=== PATIENT | male | born 1975 | race Asian ===

== ENCOUNTER 2017-07-26 08:22 | Emergency (ER) | payer OTHER ==
[2017-07-26 08:31] VITALS: RESP 16; TEMP 98.1; O2SAT 98
[2017-07-26] MEDS ORDERED: IBUPROFEN 600 MG TAB PO ONE (08:49)
--- NOTE | 2017-07-26 08:54 | EDPHY ---
H & P Time Seen by Provider: 07/26/17 08:32 HPI/ROS: This patient complains of left foot pain. The onset of the pain is over the past 48 hours but significantly worsened the day before arrival with peak intensity 8/10 sharp feeling pain to the lateral forefoot and dorsal lateral midfoot. The pain is worse with weight-bearing and in fact he cannot bear full weight on the lateral aspect of the affected foot. He reports minimal improvement from Aleve and no other exacerbating or alleviating factors. He thinks there is slight swelling associated with the symptoms. The symptoms are worse while wearing his boots. No other exacerbating factors are noted. He has never had pain in this location of his foot before. ROS: No fevers or chills. No other constitutional symptoms Musculoskeletal: No other musculoskeletal complaints at this time except for chronic discomfort from bunions bilaterally on his feet. No acute trauma. Neuro: No numbness or tingling the affected foot Cardiovascular: No significant discoloration to the affected foot Integumentary: No skin rash. 5 point ROS is otherwise negative. Social History: Occasional alcohol. No drug use. 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 While the patient typically runs for recreation he has not been running for the last 3 weeks due to foot pains. Smoking Status: Never smoked Physical Exam: Physical Exam Vital signs are normal. General: No acute distress HEENT: Atraumatic. Eyes: Pupils equal and react to light. Extraocular motions are intact. Lungs: No respiratory distress. Cardiac: Brisk capillary refill is intact throughout. Pulses are 2+ and symmetric in the affected extremity. Skin: No rash or pallor. Extremities: Atraumatic normal except for left foot Left foot: Patient has mild erythema and slight warmth to touch to the dorsal lateral midfoot. He has tenderness extends to the distal 5th metatarsal. There is moderate sized bunion with minimal tenderness but no erythema to the head of 1st metatarsal. This is symmetric with the right foot. No calcaneal tenderness, ankle swelling or tenderness or tenderness to the plantar aspect of the foot. Neuro: Alert and oriented with no sensorimotor deficits to the affected foot. Initial differential diagnosis: Stress fracture, foot sprain, gout her other mono articular arthritis Constitutional: Initial Vital Signs Temperature (C) 36.7 C 07/26/17 08:29 Heart Rate 84 07/26/17 08:29 Respiratory Rate 16 07/26/17 08:29 Blood Pressure 158/113 H 07/26/17 08:29 O2 Sat (%) 98 07/26/17 08:29 O2 Delivery Mode Room Air Allergies/Adverse Reactions: No Known Allergies Allergy (Unverified 07/26/17 08:32) Home Medications: Medication Instructions Recorded Indomethacin [Indocin 25 mg (RX)] 50 mg PO TID PRN #50 cap 07/26/17 traMADol [Ultram 50 mg (*)] 50 - 100 mg PO Q4 PRN #20 tab 07/26/17 MDM/Departure - MDM Imaging Results: Imaging Impressions Foot X-Ray 07/26/17 08:45 Impression: 1. No stress fracture. 2. 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 Medications Given: Discontinued Medications Ibuprofen (Motrin) 600 mg PO EDNOW ONE Stop: 07/26/17 08:50 Last Admin: 07/26/17 09:20 Dose: 600 mg ED Course/Re-evaluation: Labs: Normal CBC, ESR, basic metabolic panel and uric acid Discussion: This patient has an isolated area of slight warmth to touch pain, tenderness to the dorsal midfoot without evidence of acute fracture. He reports a history of gout and with the recent holiday increased consumption and possibility has a gout flare this isn't atypical area to manifesting gouty flare. There is no skin injury that would suggest as cellulitis. No risk factors or findings that would suggest a septic arthritis. Will treat with Indocin, decreased protein intake tramadol in addition for pain control as needed and follow up with Podiatry for further evaluation. He understands the need to return emergency department should he develop any significant worsening of symptoms we did outline the area of mild erythema to his foot with the understanding return if the erythema spreads much beyond the current demarcation. Patient was offered a postop shoe but declined. - Depart Disposition: Home, Routine, Self-Care Clinical Impression: Monoarthritis of foot Qualifiers: Laterality: left Qualified Code(s): M13.172 - Monoarthritis, not elsewhere classified, left ankle and foot Condition: Good Instructions: Low Purine Diet (ED) Additional Instructions: Diagnosis: [place] arthropathy of left foot Plan: Decreased protein intake Increase fluid intake Indocin anti-inflammatory Tylenol in addition for pain control Tramadol in addition if unrelieved by the other medications. No driving, alcohol work on tramadol. Postop shoe for comfort while up and about Consider cane or crutches for comfort Follow up with Dr. López-tooth grinder for further evaluation of her symptoms. Return emergency department if he have increasing symptoms despite the treatment plan including any significant increase in the area of redness Prescriptions: Indomethacin [Indocin 25 mg (RX)] 50 mg PO TID PRN #50 cap PRN Reason: pain traMADol [Ultram 50 mg (*)] 50 - 100 mg PO Q4 PRN #20 tab PRN Reason: breakthrough pain Referrals: NONE *PRIMARY CARE P,. [Primary Care Provider] - As per Instructions Yi López DPM [Doctor of Podiatric Medicine] - As per Instructions
[2017-07-26 09:32] LABS: % IMMATURE GRANULYOCYTES 0.3 % (0.0-1.1); ABSOLUTE IMMATURE GRANULOCYTES 0.02 10^3/uL (0.00-0.10); ADD DIFF? NO; ADD MORPH? NO; ADD SCAN? NO; ATYPICAL LYMPHOCYTE FLAG 0 (0-99); FRAGMENT RBC FLAG 0 (0-99); HEMATOCRIT 45.3 % (40.0-51.0); HEMOGLOBIN 16.2 g/dL (13.7-17.5); LEFT SHIFT FLG 0 (0-99); LIPEMIA HEMOLYSIS FLAG 90 (0-99); MEAN CELL HEMOGLOBIN CONCENTR. 35.8 g/dL (32.4-36.7); MEAN CELL VOLUME 89.3 fL (81.5-99.8); MEAN PLATELET VOLUME 9.9 fL (8.7-11.7); PLATELET CLUMPS FLAG 0 (0-99); PLATELET COUNT 244 10^3/uL (150-400); RED BLOOD CELL COUNT 5.07 10^6/uL (4.40-6.38); RED CELL DISTRIBUTION WIDTH 12.7 % (11.5-15.2)
[2017-07-26 09:50] LABS: SEDIMENTATION RATE 6 MM/HR (0-15)
[2017-07-26 09:55] LABS: ANION GAP 17 mEq/L (8-16); CALCIUM 9.8 mg/dL (8.5-10.4); CARBON DIOXIDE 25 mEq/l (22-31); CHLORIDE 101 mEq/L (97-110); CREATININE 0.9 mg/dL (0.7-1.3); GLOMERULAR FILTRATION RATE > 60; GLUCOSE 84 mg/dL (70-100); POTASSIUM 4.2 mEq/L (3.5-5.2); SODIUM 143 mEq/L (134-144); URIC ACID 8.4 mg/dL (3.5-8.5)
[2017-07-26 10:49] VITALS: BP 141/91; PULSE 70
== END 2017-07-26 10:51 | disposition home or self-care (01) ==
LOC: CED 08:22
DX: M13.172 Monoarthritis, not elsewhere classified, left ankle and foot (principal)
CPT/HCPCS: 73630-PO; 80048-PO; 84550-PO; 85025-PO; 85652-PO